=== PATIENT | male | born 1985 | race Caucasian/White ===

== ENCOUNTER 2023-06-12 14:58 | Emergency (ER) | payer MEDICAID, SELFPAY ==
[2023-06-12 15:25] VITALS: BP 154/85; PULSE 89; RESP 16; TEMP 36.8; O2SAT 97; BMI 34.8
--- NOTE | 2023-06-12 15:40 | ECG_ITS ---
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 Measurements Intervals [place] Rate: 81 P: 30 ND: 157 QRS: 48 QRSD: 85 T: 37 QT: 377 QTc: 440 Interpretive Statements SINUS RHYTHM No previous ECG available for comparison Electronically Signed On 06-12-2023 21:48:30 INTERVIEWING CLERK by Nemesio Morales M.D. [id number]
--- NOTE | 2023-06-12 15:48 | ED_ITS ---
HPI - Abdominal Pain 2 General: Chief Complaint: Abdominal Pain Stated Complaint: dr keenan rao amonia test, abd pain Time Seen by Provider: 06/12/23 15:19 Source: patient Mode of arrival: ambulatory Limitations: no limitations History of Present Illness: 37-year-old male has a history of cirrho sis or hepatitis C. States that he is had some confusion and fogginess today states that he is not been taking his lactulose as prescribed states it also had diffuse abdominal pain denies any headache denies any chest pain. States his PCP is concerned that his ammonia level was accumulating. Denies any fevers vomiting or diarrhea Associated Symptoms: Denies chills, diarrhea, fever(s), nausea and vomiting Review of Systems 2 Const: Denies: fever(s), chills, body aches or change in appetite ENMT: Denies: throat pain or dental pain Card: Denies: chest pain Resp: Denies: dyspnea GI: Reports: abdominal pain; Denies: nausea, vomiting or diarrhea Musc: Denies: neck pain or back pain Skin/Breast: Denies: rash Neuro: Reports: confusion; Denies: headache(s) Physical Exam 2 Const: COMMON NORMALS: no acute distress, patient oriented x3 and healthy appearing HENMT: COMMON NORMALS: normocephalic and atraumatic HEAD & SCALP: n ormocephalic and atraumatic Eye: COMMON NORMALS: Equal, round and reactive pupils present and EOMs intact bilaterally PUPIL: Yes Equal, round and reactive pupils present Neck/C-Spine: COMMON NORMALS: full ROM and supple Chest: COMMONS NORMALS: normal inspection of the chest and normal palpation of entire chest wall Resp: COMMON NORMALS: normal respiratory effort, No retractions, No use of accessory muscles and clear to auscultation bilaterally AUSCULTATION: clear to auscultation bilaterally Cardio: COMMON NORMALS: regular rate, regular rhythm and No murmurs present (Cardio) RATE: regular rate RHYTHM: regular rhythm GI: COMMON NORMALS: Normal to inspection, nondistended, normoactive bowel sounds present, Soft to palpation, non-tender and no masses PALPATION: Yes Soft to palpation Extremity: COMMON NORMALS: normal to inspection and full ROM Neuro: COMMON NORMALS: patient oriented x3, moves all extremities and no focal motor deficits Psych: COMMON NORMALS: mental status grossly normal, Normal thought process present and cooperative THOUGHT PROCESS: Normal thought process present Skin: COMMON NORMALS: no rashes or lesions noted and no wounds GENERAL SKIN EXAM: no rashes or lesions noted Course 2 Vital Signs: Vital signs: Vital Signs Temperature 98.2 F 06/12/23 15:25 Pulse Rate 89 06/12/23 15:25 Respiratory Rate 15 06/12/23 16:21 Blood Pressure 142/85 06/12/23 16:32 Pulse Oximetry 98 06/12/23 16:32 MDM - Abdominal Pain Medical Decision Making Patient presents with abdominal pain along with some confusion at home today is not confused she is answering my questions appropriately he does have an elevated ammonia I did offer him admission he states he does not want to stay. Did give him a dose of lactulose here informed he needs to take his prescribed dose of lactulose I informed his significant other if he has any more confusion she is to return with him he understands and agrees with plan Medical Records I reviewed the patient's medical records. Lab Data I reviewed the patient's lab results. 06/12/23 16:00 06/12/23 16:00 Labs/Radiology: Radiology Impressions Gallbladder Ultrasound 06/12/23 16:41 IMPRESSION: 1. Borderline hepatomegaly with mild fatty infiltration. 2. 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 3. Moderately distended gallbladder which may be chronic in nature. Consider gallbladder hydrops. Laboratory Results WBC 8.33 10^3/uL (3.29-11.43) 06/12/23 16:00 RBC 5.54 10^6/uL (3.85-5.65) 06/12/23 16:00 Hgb 12.50 g/dL (11.27-16.99) 06/12/23 16:00 Hct 39.8 % (37-53) 06/12/23 16:00 MCV 71.8 fl (82-101) L 06/12/23 16:00 MCH 22.6 pg (27-33) L 06/12/23 16:00 MCHC 31.4 g/dL (30-55) 06/12/23 16:00 RDW 20.4 % (12.1-15.1) H 06/12/23 16:00 Plt Count 225 10^3/cmm (157-399) 06/12/23 16:00 MPV 10.2 fL (7.4-10.4) 06/12/23 16:00 Neut % (Auto) 59.3 % 06/12/23 16:00 Lymph % (Auto) 27.9 % 06/12/23 16:00 [place] % (Auto) 10.7 % 06/12/23 16:00 Eos % (Auto) 0.7 % 06/12/23 16:00 Baso % (Auto) 1.2 % 06/12/23 16:00 Neut # (Auto) 4.94 10^3/uL (1.8-7.7) 06/12/23 16:00 Lymph # (Auto) 2.3 10^3/uL (0.8-4.8) 06/12/23 16:00 [place] # (Auto) 0.9 10^3/uL (0.2-0.9) 06/12/23 16:00 Eos # (Auto) 0.1 10^3/uL (0.0-0.8) 06/12/23 16:00 Baso # (Auto) 0.1 10^3/uL (0.0-0.1) 06/12/23 16:00 Nucleated RBC % (auto) 0 % 06/12/23 16:00 Nucleated RBCs # 0.0 /100WBC 06/12/23 16:00 Sodium 141 mmol/L (136-145) 06/12/23 16:00 Potassium 4.2 mmol/L (3.5-5.1) 06/12/23 16:00 Chloride 105 mmol/L (98-107) 06/12/23 16:00 Carbon Dioxide 22 mmol/L (22-29) 06/12/23 16:00 Anion Gap 18.2 (5-19) 06/12/23 16:00 BUN 11 mg/dL (6-20) 06/12/23 16:00 Creatinine 0.7 mg/dL (0.7-1.2) 06/12/23 16:00 GFR Calculation 127.6 mL/min (90-130) 06/12/23 16:00 Glucose 127 mg/dL (65-115) H 06/12/23 16:00 Calculated Osmolality 293 mOsm/kg (285-295) 06/12/23 16:00 Calcium 8.7 mg/dL (8.5-10.5) 06/12/23 16:00 Total Bilirubin 1.6 mg/dL (0.15-1.2) H 06/12/23 16:00 AST 188 U/L (0-40) H 06/12/23 16:00 ALT 104 U/L (0-41) H 06/12/23 16:00 Alkaline Phosphatase 164 U/L (40-130) H 06/12/23 16:00 Ammonia 93 umol/L (16-60) H 06/12/23 16:00 Total Protein 7.8 g/dL (6.6-8.7) 06/12/23 16:00 Albumin 4.0 g/dL (3.5-5.2) 06/12/23 16:00 Globulin 3.8 g/dL (1.3-4.6) 06/12/23 16:00 Lipase 120 U/L (13-60) H 06/12/23 16:00 No radiology studies performed this visit EKG Data EKG 1: I personally reviewed and interpreted this EKG as follows: EKG interpretation date: 06/12/23 EKG interpretation time: 15:49 Interpretation: nsr hr [address] or t wave abnormalities qrs 85 qtc 415 Discharge Plan Discharge Patient Disposition: Home Clinical Impression: Serum ammonia increased, Cirrhosis Abdominal pain Qualifiers: Abdominal location: generalized Qualified Code(s): R10.84 - Generalized abdominal pain Condition: Stable Prescriptions: No Action trazodone 50 mg tablet 25 mg PO BEDTIME PRN (Reason: Sleep) pantoprazole 40 mg tablet,delayed release (DR/EC) 40 mg PO BID Enulose 10 gram/15 mL solution 30 ml PO TID Kratom Liquid See Rx Instructions .ROUTE .COMPLEX Rx Instructions: two spoonfuls as a one time dose on 06/11/23 Discharge Orders: Discharge ED (Routine); Ordered 06/12/23 Ordered By: Franky Swain Referrals: Malcolm Delgado FNP [Primary Care Provider] - 1-3 days Discharge Diet: Advance as tolerated Discharge Activity: Resume usual activity Patient Instructions: Cirrhosis of the Liver (ED), Abdominal Pain (ED) Coding Level of Care Code ED 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
[2023-06-12 16:17] LABS: Basophils # 0.1 10^3/uL (0.0-0.1); Basophils % 1.2 %; Eosinophils # 0.1 10^3/uL (0.0-0.8); Eosinophils % 0.7 %; Hematocrit 39.8 % (37-53); Lymphocytes # 2.3 10^3/uL (0.8-4.8); Lymphocytes % 27.9 %; Mean Corpuscular HGB Conc 31.4 g/dL (30-55); Mean Corpuscular Hemoglobin 22.6 pg (27-33); Mean Corpuscular Volume 71.8 fl (82-101); Mean Platelet Volume 10.2 fL (7.4-10.4); Monocytes # 0.9 10^3/uL (0.2-0.9); Monocytes % 10.7 %; Neutrophils # 4.94 10^3/uL (1.8-7.7); Neutrophils % 59.3 %; Nucleated Red Blood Cells % 0 %; Platelet Count 225 10^3/cmm (157-399); Red Blood Count 5.54 10^6/uL (3.85-5.65); Red Cell Distribution Width 20.4 % (12.1-15.1); White Blood Count 8.33 10^3/uL (3.29-11.43)
[2023-06-12 16:21] VITALS: RESP 15; O2SAT 97
[2023-06-12] MEDS: ondansetron 2 mg/ML SDV 2 mL 4 MG IVP (16:21)
[2023-06-12] MEDS: morphine 4 mg/mL SDV 1 mL IVP (16:21)
--- NOTE | 2023-06-12 16:27 | PC.PHAR ---
pt states he takes care of his own medications-pt states he is suppose to be on carvedilol 3.125mg daily but states not taken in months ext shows last filled 01/03/23 30d/s-pt states he took kratom 06/11/23-
[2023-06-12 16:32] VITALS: BP 142/85; O2SAT 98
[2023-06-12 16:33] LABS: Alanine Aminotransferase 104 U/L (0-41); Alkaline Phosphatase 164 U/L (40-130); Anion Gap 18.2 (5-19); Aspartate Amino Transferase 188 U/L (0-40); Blood Urea Nitrogen 11 mg/dL (6-20); Calcium 8.7 mg/dL (8.5-10.5); Carbon Dioxide 22 mmol/L (22-29); Chloride 105 mmol/L (98-107); Globulin 3.8 g/dL (1.3-4.6); Glomerular Filtration Rate 127.6 mL/min (90-130); Glucose 127 mg/dL (65-115); Lipase 120 U/L (13-60); Osmolality Calculated 293 mOsm/kg (285-295); Potassium 4.2 mmol/L (3.5-5.1); Sodium 141 mmol/L (136-145); Total Bilirubin 1.6 mg/dL (0.15-1.2); Total Protein 7.8 g/dL (6.6-8.7)
[2023-06-12 16:40] LABS: Ammonia 93 umol/L (16-60)
--- NOTE | 2023-06-12 16:41 | USR_ITS ---
PROCEDURE INFORMATION: Exam: US Abdomen, Limited; Right Upper Quadrant Exam date and time: 06/12/2023 4:57 PM Age: 37 years old Clinical indication: Abdominal pain; Generalized; Additional info: Abd pain TECHNIQUE: Imaging protocol: Real time ultrasound of the abdomen with image documentation. Limited exam focused on the right upper quadrant. COMPARISON: No relevant prior studies available. FINDINGS: Liver: Liver is borderline enlarged and mildly echogenic in texture that may be secondary to fatty infiltration. No masses detected. Gallbladder: Gallbladder is moderately distended measuring 13 x 5.6 cm in dimension. No gallstones or wall thickening detected. No pericholecystic fluid. No ultrasonic Calzada sign. Biliary ducts: Common bile duct not dilated measuring 3 mm. Pancreas: Visualized portions of the pancreas are unremarkable. Right kidney: Right kidney is unremarkable. No masses, shadowing calculi or hydronephrosis detected. Aorta: Abdominal aorta was not visualized, obscured by bowel gas. Inferior vena cava: IVC is unremarkable. Portal venous: Portal vein is patent. There is a evidence of TIPS procedure with internal flow indicating patency. US/US gall bladder [id number] IMPRESSION: 1. Borderline hepatomegaly with mild fatty infiltration. 2. 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 3. Moderately distended gallbladder which may be chronic in nature. Consider gallbladder hydrops.
[2023-06-12] MEDS: lactulose oral liq 20 gm/30 mL UDC 30 GM PO (18:08)
== END 2023-06-12 18:10 | disposition home or self-care (01) ==
PROVIDERS: Emergency Provider Emergency Medicine; PCP Nurse Practitioner Family
DX: R10.84 Generalized abdominal pain (principal); K74.60 Unspecified cirrhosis of liver; E72.29 Other disorders of urea cycle metabolism; Z86.19 Personal history of other infectious and parasitic diseases
CPT/HCPCS: 76705; 80053; 82140; 83690; 85025; 93005; 96374; 96375; 99285; J2060; J2270; J2405